=== PATIENT | female | born 1970 | race Caucasian/White ===

== ENCOUNTER 2021-11-06 09:10 | Day surgery (SDC) | payer OTHER ==
[~2021-11-06] VITALS: Ht 175.3 cm; Wt 123.6 kg
[~2021-11-06 09:10] MED LIST: FERROUS SULFAT325 M3 PO; FURO20 PO; POTA10T PO
[2021-11-06] MEDS ORDERED: VITAMIN D5000 UNIT PO (09:45)
--- NOTE | 2021-11-06 09:46 | NUR ---
Ambulatory in Day Surgery History, Chart, Medications and Allergies reviewed before start of procedure. Lungs clear T/O to Auscultation. Patient confirms NPO status and agrees with scheduled surgery. Pre-Op teaching done. Pt verbalizes understanding. Patient States Post-Procedure ride home has been arranged.
--- NOTE | 2021-11-06 11:28 | NUR ---
11/06/21 1128 Bea Scruggs History, Chart, Medications and Allergies reviewed before start of procedure.MONITOR INTACT WITH CONTINUOUS PULSE OXIMETRY, 3LEAD, AND INTERMITTENT BP.See Anesthesia record
== END 2021-11-06 23:07 | disposition home or self-care (01) ==
LOC: ORSCMMR 09:10 → ORSCSDS 11:00 → ORSCMMR 11:45 → ORSCSDS 11:45 → ORSCMMR 23:07
PROVIDERS: Internal Medicine Gastroenterology
PROC: 0DBH8ZX Excision of Cecum, Via Natural or Artificial Opening Endoscopic, Diagnostic (ICD-10-PCS; principal; 2021-11-06 12:30)
DX: D50.9 Iron deficiency anemia, unspecified (principal); K92.1 Melena; D12.0 Benign neoplasm of cecum; K21.9 Gastro-esophageal reflux disease without esophagitis; K76.0 Fatty (change of) liver, not elsewhere classified; R73.03 Prediabetes; E66.01 Morbid (severe) obesity due to excess calories; Z68.41 Body mass index [BMI] 40.0-44.9, adult
CPT/HCPCS: 82947; 88305; J2001; J2704; J7120

== ENCOUNTER → 2022-01-28 | Outpatient (CLI) | payer OTHER ==
[~2022-01-28] MED LIST changes: +VITAMIN D5000 UNIT PO
[2022-01-31 12:11] LABS: CHLAMYDIA BY NAA Negative (Negative); GONOCOCCUS BY NAA Negative (Negative); HPV 16 Negative (Negative); HPV 18 Negative (Negative); HPV OTHER HR TYPES Negative (Negative); TRICH VAG BY NAA Negative (Negative)
== END ==
LOC: LAB SHORT 10:30 → LAB 10:30
PROVIDERS: Nurse Practitioner Family
DX: Z01.419 Encounter for gynecological examination (general) (routine) without abnormal findings (principal)
CPT/HCPCS: 87491; 87591; 87624; 87661; G0123